=== PATIENT | female | born 1960 | race African-American/Black ===

== ENCOUNTER 2017-05-13 16:01 | Inpatient (IN) ==
[2017-05-13] MEDS ORDERED: DOCUSATE SODIUM 100 MG CAPSULE PO PRN (20:45)
[2017-05-13] MEDS ORDERED: MORPHINE 2 MG/1 ML SYRINGE IV PRN (20:47)
[2017-05-13] MEDS ORDERED: HEPARIN 5,000 UNIT/1 ML VIAL SUBCUT SCH (21:00)
[2017-05-13] MEDS ORDERED: SODIUM BICARB INJ 100 MEQ in SODIUM CHLORIDE 0.9% 1,000 ML IV SCH (21:00)
[2017-05-13 21:13] LABS: ABG Base Excess -21.6 MMOL/L (-2.5-2.5); ABG HCO3 9.1 MMOL/L (20-26); ABG Oxygen Saturation 95.2 % (95-100); ABG PCO2 21.8 MM HG (35-48); ABG TCO2 6.6 MMOL/L (23-27); Allen Test Positive; Pt O2 Delivery Device Room Air
[2017-05-13 21:18] LABS: ABG PH 7.116 (7.35-7.45)
[2017-05-13] MEDS: MORPHINE 2 MG/1 ML SYRINGE IV PRN (21:37)
[2017-05-13] MEDS: PANTOPRAZOLE 40 MG VIAL IV SCH (21:39)
[2017-05-13 21:54] LABS: Basophils % 0.1 % (0.0-0.8); Hemoglobin 11.3 GM/DL (12.0-16.0); Immature Granulocytes % 0.8 %; Immature Granulocytes Absolute 0.08 #; Lymphocytes # 0.7 10*3/uL (1.4-4.0); Lymphocytes % 6.2 % (21.3-54.2); Mean Corpuscular HGB Conc 30.5 GM/DL (32-36); Mean Corpuscular Hemoglobin 26 PG (27-34); Mean Corpuscular Volume 86.4 FL (87-102); Mean Platelet Volume 12.2 FL (9.6-12.0); Monocytes # 0.8 10*3/uL (0.11-0.8); Monocytes % 7.3 % (1.7-12.7); NRBC # 0.02 10*3/uL; Neutrophils # 9.1 10*3/uL (1.4-7.4); Neutrophils % 85.6 % (38.7-73.9); Platelet Count 221 T/CUMM (130-400); Red Blood Count 4.28 MC/CUMM (3.8-5.5); Red Cell Distribution Width 16.1 % (9.3-17.3); White Blood Count 10.6 T/CUMM (4-12)
[2017-05-13 22:11] LABS: Apearance,Urine CLOUDY (Clear); Bacteria,Urine Few /HPF (Few); Bilirubin,Urine Negative (Negative); Blood, Urine Small mg/dL (Negative); Glucose,Urine (UA) 50 mg/dL (Negative); Ketones,Urine 5 mg/dL (Negative); Mucus,Urine Occasional /LPF (Occasional); Nitrite,Urine Negative (Negative); Protein,Urine 100 MG/DL; RBC,Urine 19 /HPF (0-4); Squamous Epithelial Cell,Urine Occasional /HPF (0-10); Urine Color Yellow (Yellow); Urine Specific Gravity 1.009 (1.001-1.035); Urine Urobilinogen < 2.0 EU/DL (0.2-1.0); WBC,Urine 240 /HPF (0-6)
[2017-05-13 22:34] LABS: Alanine Aminotransferase < 9 U/L (13-56); Albumin 2.5 G/DL (3.4-5.0); Alkaline Phosphatase 85 U/L (45-117); Aspartate Amino Transferase 8 U/L (0-37); Bilirubin,Total < 0.39 MG/DL (0.2-1.0); Blood Urea Nitrogen 40 MG/DL (7-18); Glucose 68 MG/DL (74-106); Osmolality,Calculated 271.5 MOS/KG (273-304); Potassium 5.8 MMOL/L (3.5-5.1); Sodium 132 MMOL/L (136-145); Total Protein 5.8 G/DL (6.4-8.3)
[2017-05-13 22:35] LABS: Calcium 5.3 MG/DL (8.5-10.1)
[2017-05-13] MEDS: SODIUM BICARB INJ 150 MEQ in STERILE WATER INJ 850 ML IV SCH (22:41)
[2017-05-13] MEDS ORDERED: CALCIUM GLUCONATE 2,000 MG in SODIUM CHLORIDE 0.9% 100 ML IV ONE (23:00)
[2017-05-14] MEDS ORDERED: SODIUM POLYSTYRENE SULFATE 15 GM/60 ML BOTTLE PO SCH (00:30)
[2017-05-14] MEDS: MORPHINE 2 MG/1 ML SYRINGE IV PRN ×5 (02:37→20:19)
[2017-05-14 05:22] LABS: Hematocrit 33.4 VOL% (35.7-47.0); Hemoglobin 10.4 GM/DL (12.0-16.0); Immature Granulocytes % 0.4 %; Immature Granulocytes Absolute 0.03 #; Lymphocytes # 0.8 10*3/uL (1.4-4.0); Lymphocytes % 12.2 % (21.3-54.2); Mean Corpuscular HGB Conc 31.1 GM/DL (32-36); Mean Corpuscular Hemoglobin 26 PG (27-34); Mean Corpuscular Volume 82.5 FL (87-102); Mean Platelet Volume 12.5 FL (9.6-12.0); Monocytes # 0.5 10*3/uL (0.11-0.8); Monocytes % 7.4 % (1.7-12.7); NRBC # 0.02 10*3/uL; Neutrophils # 5.5 10*3/uL (1.4-7.4); Platelet Count 196 T/CUMM (130-400); Red Blood Count 4.05 MC/CUMM (3.8-5.5); Red Cell Distribution Width 15.9 % (9.3-17.3); White Blood Count 6.9 T/CUMM (4-12)
[2017-05-14] MEDS: SODIUM BICARB INJ 150 MEQ in STERILE WATER INJ 850 ML IV SCH ×3 (05:22→19:54)
[2017-05-14 06:02] LABS: Magnesium 1.8 MG/DL (1.8-2.4); Osmolality,Calculated 277.1 MOS/KG (273-304); Potassium 4.4 MMOL/L (3.5-5.1)
[2017-05-14 06:09] LABS: Alanine Aminotransferase 10 U/L (13-56); Albumin 2.3 G/DL (3.4-5.0); Alkaline Phosphatase 84 U/L (45-117); Aspartate Amino Transferase 7 U/L (0-37); Bilirubin,Total < 0.39 MG/DL (0.2-1.0); Blood Urea Nitrogen 37 MG/DL (7-18); Calcium 5.6 MG/DL (8.5-10.1); Cholesterol 169 MG/DL (50-200); Glucose 77 MG/DL (74-106); HDL Cholesterol 26 MG/DL (40-60); Osmolality,Calculated 275.2 MOS/KG (273-304); Potassium 4.4 MMOL/L (3.5-5.1); Sodium 134 MMOL/L (136-145); Thyroid Stimulating Hormone < 0.005 uIU/ml (0.358-3.74); Total Protein 5.6 G/DL (6.4-8.3); Triglycerides 334 MG/DL (2-150); VLDL CHOLESTEROL 66.8 MG/DL
[2017-05-14 06:15] LABS: Calcium 5.6 MG/DL (8.5-10.1)
[2017-05-14] MEDS: PANTOPRAZOLE 40 MG VIAL IV SCH (09:29)
[2017-05-14] MEDS: CALCIUM (CARBONATE) 500 MG TABLET PO SCH ×3 (09:31→20:19)
[2017-05-14] MEDS: PANTOPRAZOLE 40 MG TABLET PO SCH ×2 (13:24→20:19)
[2017-05-14] MEDS: cefTRIAXone 1,000 MG in SYRINGE 1 EACH IV SCH (13:57)
[2017-05-14] MEDS: SUCRALFATE 1 GM TABLET PO SCH ×2 (20:02→20:19)
[2017-05-15] MEDS: MORPHINE 2 MG/1 ML SYRINGE IV PRN ×6 (00:16→21:15)
[2017-05-15] MEDS: SODIUM BICARB INJ 150 MEQ in STERILE WATER INJ 850 ML IV SCH ×3 (05:06→18:18)
[2017-05-15 07:13] LABS: Basophils % 0.2 % (0.0-0.8); Eosinophils # 0.1 10*3/uL (0.0-0.87); Eosinophils % 1.5 % (0.00-10.9); Hemoglobin 10.2 GM/DL (12.0-16.0); Immature Granulocytes % 0.4 %; Immature Granulocytes Absolute 0.02 #; Lymphocytes # 1.5 10*3/uL (1.4-4.0); Mean Corpuscular Hemoglobin 26 PG (27-34); Mean Corpuscular Volume 77.5 FL (87-102); Mean Platelet Volume 12.3 FL (9.6-12.0); Monocytes # 0.8 10*3/uL (0.11-0.8); Monocytes % 13.8 % (1.7-12.7); Neutrophils # 3.1 10*3/uL (1.4-7.4); Neutrophils % 57.1 % (38.7-73.9); Platelet Count 192 T/CUMM (130-400); Red Blood Count 3.87 MC/CUMM (3.8-5.5); Red Cell Distribution Width 15.3 % (9.3-17.3); White Blood Count 5.5 T/CUMM (4-12)
[2017-05-15 08:08] LABS: Osmolality,Calculated 278.7 MOS/KG (273-304); Potassium 2.9 MMOL/L (3.5-5.1)
[2017-05-15] MEDS: PANTOPRAZOLE 40 MG TABLET PO SCH ×2 (08:24→21:15)
[2017-05-15] MEDS: CALCIUM (CARBONATE) 500 MG TABLET PO SCH ×3 (08:24→21:15)
[2017-05-15] MEDS: LEVOTHYROXINE 125 MCG TABLET PO SCH (08:24)
[2017-05-15] MEDS: SUCRALFATE 1 GM TABLET PO SCH ×4 (08:24→21:15)
[2017-05-15] MEDS ORDERED: PANTOPRAZOLE 40 MG TABLET PO SCH (09:00)
[2017-05-15] MEDS: cefTRIAXone 1,000 MG in SYRINGE 1 EACH IV SCH (13:06)
[2017-05-15] MEDS: POTASSIUM CHLORIDE 20 MEQ TABLET PO SCH ×4 (13:07→22:38)
[2017-05-15] MEDS: ALPRAZolam 0.5 MG TABLET PO SCH ×2 (18:29→18:38)
[2017-05-15] MEDS: SODIUM CHLORIDE 0.45% 1,000 ML IV SCH (18:34)
[2017-05-15] MEDS ORDERED: ALPRAZolam 0.5 MG TABLET PO ONE (22:17)
[2017-05-16] MEDS: SODIUM CHLORIDE 0.45% 1,000 ML IV SCH ×3 (02:14→20:11)
[2017-05-16 07:18] LABS: Osmolality,Calculated 274.7 MOS/KG (273-304); Potassium 3.9 MMOL/L (3.5-5.1)
[2017-05-16 07:30] LABS: Calcium 5.1 MG/DL (8.5-10.1)
[2017-05-16] MEDS: MORPHINE 2 MG/1 ML SYRINGE IV PRN ×2 (08:57→12:46)
[2017-05-16] MEDS: CALCIUM (CARBONATE) 500 MG TABLET PO SCH ×3 (08:58→20:10)
[2017-05-16] MEDS: LEVOTHYROXINE 125 MCG TABLET PO SCH (08:58)
[2017-05-16] MEDS: ALPRAZolam 0.5 MG TABLET PO SCH ×2 (08:58→18:22)
[2017-05-16] MEDS: SUCRALFATE 1 GM TABLET PO SCH ×4 (08:58→20:10)
[2017-05-16] MEDS: PANTOPRAZOLE 40 MG TABLET PO SCH ×2 (08:58→20:10)
[2017-05-16] MEDS: cefTRIAXone 1,000 MG in SYRINGE 1 EACH IV SCH (10:40)
[2017-05-16] MEDS: CALCIUM GLUCONATE 2,000 MG in SODIUM CHLORIDE 0.9% 100 ML IV SCH ×2 (13:41→16:59)
[2017-05-16] MEDS: ONDANSETRON 4 MG/2 ML VIAL IV PRN (18:30)
[2017-05-16] MEDS: traZODone 50 MG TABLET PO PRN (20:10)
[2017-05-17] MEDS: SODIUM CHLORIDE 0.45% 1,000 ML IV SCH (06:22)
[2017-05-17 07:22] LABS: Calcium 5.9 MG/DL (8.5-10.1); Magnesium 1.3 MG/DL (1.8-2.4); Osmolality,Calculated 284.1 MOS/KG (273-304); Potassium 3.2 MMOL/L (3.5-5.1)
[2017-05-17] MEDS ORDERED: CALCIUM GLUCONATE 2,000 MG in SODIUM CHLORIDE 0.9% 100 ML IV ONE (09:00)
[2017-05-17] MEDS: CALCIUM (CARBONATE) 500 MG TABLET PO SCH ×3 (10:06→22:29)
[2017-05-17] MEDS: ALPRAZolam 0.5 MG TABLET PO SCH ×2 (10:06→18:21)
[2017-05-17] MEDS: SULFAMETHOX/TRIMETHOPRIM 800-160 MG TABLET PO SCH ×2 (10:06→22:29)
[2017-05-17] MEDS: LEVOTHYROXINE 125 MCG TABLET PO SCH (10:06)
[2017-05-17] MEDS: SUCRALFATE 1 GM TABLET PO SCH ×4 (10:06→22:29)
[2017-05-17] MEDS: PANTOPRAZOLE 40 MG TABLET PO SCH ×2 (10:07→22:29)
[2017-05-17] MEDS: MAGNESIUM SULFATE 1 GM/2 ML VIAL IM SCH ×2 (12:23→18:22)
[2017-05-17] MEDS: ONDANSETRON 4 MG/2 ML VIAL IV PRN (13:42)
[2017-05-17] MEDS: traZODone 50 MG TABLET PO PRN (22:28)
[2017-05-18] MEDS: ONDANSETRON 4 MG/2 ML VIAL IV PRN (06:17)
[2017-05-18 07:03] LABS: Calcium 6.3 MG/DL (8.5-10.1); Magnesium 1.9 MG/DL (1.8-2.4); Osmolality,Calculated 278.4 MOS/KG (273-304); Potassium 3.2 MMOL/L (3.5-5.1)
[2017-05-18] MEDS: SULFAMETHOX/TRIMETHOPRIM 800-160 MG TABLET PO SCH (08:31)
[2017-05-18] MEDS: CALCIUM (CARBONATE) 500 MG TABLET PO SCH (08:31)
[2017-05-18] MEDS: PANTOPRAZOLE 40 MG TABLET PO SCH (08:31)
[2017-05-18] MEDS: SUCRALFATE 1 GM TABLET PO SCH ×2 (08:31→13:00)
[2017-05-18] MEDS: ALPRAZolam 0.5 MG TABLET PO SCH (08:31)
[2017-05-18] MEDS: LEVOTHYROXINE 125 MCG TABLET PO SCH (08:31)
[2017-05-18 12:57] VITALS: BP 128/64
== END 2017-05-18 13:20 | disposition home or self-care (01) | DRG 918 ==
LOC: SUATTDRO 20:31 → N.CC 20:31 → N.5E 05-15 01:44
PROVIDERS: ADMIT Internal Medicine; ATTEND Internal Medicine Cardiovascular Disease

== ENCOUNTER 2018-09-18 11:37 | Inpatient (IN) ==
[2018-09-18] MEDS ORDERED: SODIUM CHLORIDE 0.9% 1,000 ML IV STA (13:05)
[2018-09-18 13:10] LABS: Apearance,Urine CLEAR (Clear); Bilirubin,Urine Negative (Negative); Blood, Urine Negative (Negative); Glucose,Urine (UA) Negative (Negative); Hyaline Casts,Urine 1 /LPF (0-3); Ketones,Urine Negative (Negative); Mucus,Urine Many /LPF (Occasional); Nitrite,Urine Negative (Negative); Protein,Urine 100 MG/DL; RBC,Urine <1 /HPF (0-4); Squamous Epithelial Cell,Urine Occasional /HPF (0-10); Urine Color Yellow (Yellow); Urine Specific Gravity 1.021 (1.001-1.035); Urine Urobilinogen < 2.0 EU/DL (0.2-1.0); WBC,Urine 2 /HPF (0-6)
[2018-09-18 13:22] LABS: Basophils % 0.4 % (0.0-0.8); Eosinophils # 0.8 10*3/uL (0.0-0.87); Eosinophils % 7.9 % (0.00-10.9); Hematocrit 33.7 VOL% (35.7-47.0); Hemoglobin 10.2 GM/DL (12.0-16.0); Immature Granulocytes % 0.4 %; Immature Granulocytes Absolute 0.04 #; Lymphocytes % 19.8 % (21.3-54.2); Mean Corpuscular HGB Conc 30.3 GM/DL (32-36); Mean Corpuscular Volume 87.1 FL (87-102); Mean Platelet Volume 10.6 FL (9.6-12.0); Monocytes % 10.1 % (1.7-12.7); Neutrophils % 61.4 % (38.7-73.9); Platelet Count 275 T/CUMM (130-400); Red Blood Count 3.87 MC/CUMM (3.8-5.5); Red Cell Distribution Width 17.3 % (9.3-17.3); White Blood Count 10.2 T/CUMM (4-12)
[2018-09-18 13:33] LABS: Barbiturates Screen,Urine Negative (Negative); Benzodiazepines Screen,Urine Negative (Negative); Cannabinoid Screen,Urine Positive (Negative); Opiate Screen,Urine Positive (Negative); Phencyclidine Screen,Urine Negative (Negative)
[2018-09-18] MEDS ORDERED: ONDANSETRON 4 MG/2 ML VIAL IV STA (13:49)
[2018-09-18 13:50] LABS: Alanine Aminotransferase 9 U/L (13-56); Albumin 2.4 G/DL (3.4-5.0); Alkaline Phosphatase 101 U/L (45-117); Aspartate Amino Transferase 7 U/L (0-37); Bilirubin,Total < 0.39 MG/DL (0.2-1.0); Blood Urea Nitrogen 11 MG/DL (7-18); Calcium 8.4 MG/DL (8.5-10.1); Glucose 80 MG/DL (74-106); Osmolality,Calculated 280.1 MOS/KG (273-304); Total Protein 6.2 G/DL (6.4-8.3)
[2018-09-18] MEDS ORDERED: MORPHINE 4 MG/1 ML VIAL IV STA (14:19)
[2018-09-18] MEDS ORDERED: diphenhydrAMINE CAP 25 MG CAPSULE PO PRN (15:57)
[2018-09-18] MEDS ORDERED: ZALEPLON 5 MG CAPSULE PO PRN (15:57)
[2018-09-18] MEDS: HYDROmorphone 2 MG/1 ML VIAL IV PRN ×2 (17:38→20:16)
[2018-09-18] MEDS: NICOTINE 21 MG/24 HR PATCH TRANSDERM PRN (17:38)
[2018-09-18] MEDS: PANTOPRAZOLE 40 MG TABLET PO SCH (17:39)
[2018-09-18] MEDS: SUCRALFATE 1 GM TABLET PO SCH (20:15)
[2018-09-18] MEDS: ENOXAPARIN 40 MG/0.4 ML SYRINGE SUBCUT SCH (20:16)
[2018-09-18] MEDS: GABAPENTIN 300 MG CAPSULE PO SCH (20:16)
[2018-09-18] MEDS: ALPRAZolam 0.5 MG TABLET PO SCH (20:16)
[2018-09-18] MEDS: ONDANSETRON 4 MG/2 ML VIAL IV PRN (20:17)
[2018-09-19] MEDS: ONDANSETRON 4 MG/2 ML VIAL IV PRN ×2 (01:00→09:08)
[2018-09-19] MEDS: HYDROmorphone 2 MG/1 ML VIAL IV PRN ×3 (01:03→16:10)
[2018-09-19 05:18] LABS: Basophils % 0.4 % (0.0-0.8); Eosinophils # 0.9 10*3/uL (0.0-0.87); Hematocrit 28.5 VOL% (35.7-47.0); Hemoglobin 8.8 GM/DL (12.0-16.0); Immature Granulocytes % 0.2 %; Immature Granulocytes Absolute 0.02 #; Lymphocytes # 3.8 10*3/uL (1.4-4.0); Lymphocytes % 38.5 % (21.3-54.2); Mean Corpuscular HGB Conc 30.9 GM/DL (32-36); Mean Corpuscular Volume 87.4 FL (87-102); Mean Platelet Volume 11.8 FL (9.6-12.0); Monocytes % 8.3 % (1.7-12.7); Neutrophils % 43.6 % (38.7-73.9); Platelet Count 148 T/CUMM (130-400); Red Blood Count 3.26 MC/CUMM (3.8-5.5); Red Cell Distribution Width 17.3 % (9.3-17.3); White Blood Count 9.9 T/CUMM (4-12)
[2018-09-19 05:24] LABS: Alanine Aminotransferase < 9 U/L (13-56); Albumin 1.9 G/DL (3.4-5.0); Alkaline Phosphatase 85 U/L (45-117); Aspartate Amino Transferase 8 U/L (0-37); Blood Urea Nitrogen 12 MG/DL (7-18); Calcium 7.6 MG/DL (8.5-10.1); Glucose 98 MG/DL (74-106); Total Protein 5.2 G/DL (6.4-8.3)
[2018-09-19] MEDS: LEVOTHYROXINE 200 MCG TABLET PO SCH (06:13)
[2018-09-19] MEDS: LEVOTHYROXINE 25 MCG TABLET PO SCH (06:13)
[2018-09-19 06:33] LABS: Eosinophils 9 % (0-10); Lymphocytes 30 % (20-55); Segmented Neutrophils 52 % (50-85); Total Cells Counted 100
[2018-09-19 06:34] LABS: Hypochromasia 1+
[2018-09-19] MEDS: PANTOPRAZOLE 40 MG TABLET PO SCH (09:08)
[2018-09-19] MEDS: GABAPENTIN 300 MG CAPSULE PO SCH ×3 (09:08→20:53)
[2018-09-19] MEDS: SUCRALFATE 1 GM TABLET PO SCH ×3 (09:08→20:53)
[2018-09-19] MEDS: SODIUM CHLORIDE 0.9% 1,000 ML IV SCH ×2 (09:09→20:56)
[2018-09-19] MEDS: ALPRAZolam 0.5 MG TABLET PO SCH (20:53)
[2018-09-19] MEDS: ENOXAPARIN 40 MG/0.4 ML SYRINGE SUBCUT SCH (20:53)
[2018-09-20] MEDS: ONDANSETRON 4 MG/2 ML VIAL IV PRN ×3 (04:31→21:28)
[2018-09-20] MEDS: HYDROmorphone 2 MG/1 ML VIAL IV PRN ×3 (05:05→21:30)
[2018-09-20] MEDS: SODIUM CHLORIDE 0.9% 1,000 ML IV SCH ×4 (05:07→21:00)
[2018-09-20] MEDS: LEVOTHYROXINE 25 MCG TABLET PO SCH (05:52)
[2018-09-20] MEDS: LEVOTHYROXINE 200 MCG TABLET PO SCH (05:52)
[2018-09-20 06:30] LABS: Basophils % 0.3 % (0.0-0.8); Eosinophils # 0.6 10*3/uL (0.0-0.87); Eosinophils % 6.5 % (0.00-10.9); Hematocrit 29.3 VOL% (35.7-47.0); Hemoglobin 8.7 GM/DL (12.0-16.0); Immature Granulocytes % 0.4 %; Immature Granulocytes Absolute 0.04 #; Lymphocytes # 2.6 10*3/uL (1.4-4.0); Lymphocytes % 29.6 % (21.3-54.2); Mean Corpuscular HGB Conc 29.7 GM/DL (32-36); Mean Corpuscular Volume 88.3 FL (87-102); Mean Platelet Volume 10.9 FL (9.6-12.0); Monocytes % 10.3 % (1.7-12.7); Neutrophils % 52.9 % (38.7-73.9); Platelet Count 225 T/CUMM (130-400); Red Blood Count 3.32 MC/CUMM (3.8-5.5); Red Cell Distribution Width 17.5 % (9.3-17.3); White Blood Count 8.9 T/CUMM (4-12)
[2018-09-20 06:59] LABS: Calcium 7.5 MG/DL (8.5-10.1)
[2018-09-20] MEDS: GABAPENTIN 300 MG CAPSULE PO SCH ×3 (08:34→21:19)
[2018-09-20] MEDS: PANTOPRAZOLE 40 MG TABLET PO SCH (08:34)
[2018-09-20] MEDS: SUCRALFATE 1 GM TABLET PO SCH ×3 (08:34→21:19)
[2018-09-20] MEDS: NICOTINE 21 MG/24 HR PATCH TRANSDERM PRN (08:35)
[2018-09-20] MEDS ORDERED: POLYETHYLENE GLYCOL POWDER 17 GM PACK PO PRN (13:39)
[2018-09-20] MEDS ORDERED: ALUMINUM/MAGNES/SIMETH MAX STR 30 ML UDCUP PO PRN (13:39)
[2018-09-20] MEDS: MAGNESIUM HYDROXIDE SUSP 30 ML UDCUP PO PRN (14:25)
[2018-09-20] MEDS: SIMETHICONE CHEW 125 MG TABLET PO PRN (17:19)
[2018-09-20] MEDS: ALPRAZolam 0.5 MG TABLET PO SCH (21:19)
[2018-09-20] MEDS: ENOXAPARIN 40 MG/0.4 ML SYRINGE SUBCUT SCH (21:20)
[2018-09-21] MEDS: LEVOTHYROXINE 200 MCG TABLET PO SCH (05:33)
[2018-09-21] MEDS: LEVOTHYROXINE 25 MCG TABLET PO SCH (05:33)
[2018-09-21 05:51] LABS: Basophils % 0.4 % (0.0-0.8); Eosinophils # 0.6 10*3/uL (0.0-0.87); Eosinophils % 7.6 % (0.00-10.9); Hematocrit 32.1 VOL% (35.7-47.0); Hemoglobin 9.4 GM/DL (12.0-16.0); Immature Granulocytes % 0.4 %; Immature Granulocytes Absolute 0.03 #; Lymphocytes # 3.3 10*3/uL (1.4-4.0); Lymphocytes % 43.3 % (21.3-54.2); Mean Corpuscular HGB Conc 29.3 GM/DL (32-36); Mean Corpuscular Volume 92.2 FL (87-102); Mean Platelet Volume 11.7 FL (9.6-12.0); Monocytes % 8.8 % (1.7-12.7); Neutrophils % 39.5 % (38.7-73.9); Red Blood Count 3.48 MC/CUMM (3.8-5.5); Red Cell Distribution Width 17.2 % (9.3-17.3); White Blood Count 7.6 T/CUMM (4-12)
[2018-09-21 05:58] LABS: Platelet Count 102 T/CUMM (130-400)
[2018-09-21] MEDS: ONDANSETRON 4 MG/2 ML VIAL IV PRN (06:34)
[2018-09-21] MEDS: SODIUM CHLORIDE 0.9% 1,000 ML IV SCH (06:37)
[2018-09-21 06:42] LABS: Calcium 7.7 MG/DL (8.5-10.1); Osmolality,Calculated 280.1 MOS/KG (273-304)
[2018-09-21] MEDS: NICOTINE 21 MG/24 HR PATCH TRANSDERM PRN (08:32)
[2018-09-21] MEDS: PANTOPRAZOLE 40 MG TABLET PO SCH (08:33)
[2018-09-21] MEDS: GABAPENTIN 300 MG CAPSULE PO SCH (08:33)
[2018-09-21] MEDS: SIMETHICONE CHEW 125 MG TABLET PO PRN (08:33)
[2018-09-21] MEDS: HYDROmorphone 2 MG/1 ML VIAL IV PRN (08:48)
[2018-09-21] MEDS: SUCRALFATE 1 GM TABLET PO SCH (08:48)
[2018-09-21] MEDS: MAGNESIUM HYDROXIDE SUSP 30 ML UDCUP PO PRN (08:49)
[2018-09-21 11:56] VITALS: BP 99/54
== END 2018-09-21 14:29 | disposition home or self-care (01) | DRG 439 ==
LOC: N.ED 11:37 → N.EDINP 16:22 → N.2E 17:23
PROVIDERS: ADMIT Hospitalist; ATTEND Hospitalist

== ENCOUNTER 2020-11-03 13:26 | Inpatient (IN) ==
[2020-11-03] MEDS ORDERED: SODIUM CHLORIDE 0.9% 1,000 ML IV STA (15:45)
[2020-11-03] MEDS ORDERED: ONDANSETRON 4 MG/2 ML VIAL IV STA (15:45)
[2020-11-03] MEDS ORDERED: MORPHINE 4 MG/1 ML VIAL IV STA (15:45)
[2020-11-03 20:02] LABS: Basophils % 0.1 % (0.0-0.8); Hematocrit 35.7 VOL% (35.7-47.0); Hemoglobin 11.1 GM/DL (12.0-16.0); Immature Granulocytes % 0.3 %; Immature Granulocytes Absolute 0.03 #; Lymphocytes # 0.8 10*3/uL (1.4-4.0); Lymphocytes % 7.6 % (21.3-54.2); Mean Corpuscular HGB Conc 31.1 GM/DL (32-36); Mean Corpuscular Volume 83.2 FL (87-102); Mean Platelet Volume 10.5 FL (9.6-12.0); Monocytes % 7.6 % (1.7-12.7); Neutrophils % 84.4 % (38.7-73.9); Platelet Count 226 T/CUMM (130-400); Red Blood Count 4.29 MC/CUMM (3.8-5.5); Red Cell Distribution Width 22.9 % (9.3-17.3); White Blood Count 10.4 T/CUMM (4-12)
[2020-11-03 20:23] LABS: Bilirubin,Urine Negative (Negative); Blood, Urine Negative (Negative); Glucose,Urine (UA) Negative (Negative); Hyaline Casts,Urine 4 /LPF (0-3); Ketones,Urine 5 mg/dL (Negative); Mucus,Urine Occasional /LPF (Occasional); Nitrite,Urine Negative (Negative); Protein,Urine 100 MG/DL; RBC,Urine 2 /HPF (0-4); Squamous Epithelial Cell,Urine Occasional /HPF (0-10); Urine Appearance CLEAR (Clear); Urine Color Yellow (Yellow); Urine Specific Gravity 1.018 (1.001-1.035); Urine Urobilinogen < 2.0 EU/DL (0.2-1.0)
[2020-11-03 20:27] LABS: Alanine Aminotransferase 12 U/L (13-56); Albumin 2.5 G/DL (3.4-5.0); Alkaline Phosphatase 56 U/L (45-117); Aspartate Amino Transferase 10 U/L (0-37); Bilirubin,Total < 0.39 MG/DL (0.2-1.0); Blood Urea Nitrogen 8 MG/DL (7-18); Calcium 8.6 MG/DL (8.5-10.1); Carbon Dioxide 24 MMOL/L (21-32); Estimated Glom Filtration Rate 118 ML/MIN; Glucose 108 MG/DL (74-106); Osmolality,Calculated 277.4 MOS/KG (273-304); Potassium 3.5 MMOL/L (3.5-5.1); Sodium 140 MMOL/L (136-145); Total Protein 5.9 G/DL (6.4-8.2)
[2020-11-03] MEDS ORDERED: HYDROmorphone 2 MG/1 ML VIAL IV STA (21:00)
[2020-11-03] MEDS ORDERED: PROMETHAZINE 25 MG/1 ML VIAL IM PRN (23:14)
[2020-11-03] MEDS ORDERED: ALBUTEROL/IPRATROPIUM 3 ML NEB RESP TX PRN (23:14)
[2020-11-03] MEDS ORDERED: DEXTROSE 50% 25 GM/50 ML VIAL IV PRN (23:14)
[2020-11-03] MEDS ORDERED: GLUCAGON 1 MG VIAL IM PRN (23:14)
[2020-11-03] MEDS ORDERED: hydrALAZINE 20 MG/1 ML VIAL IV PRN (23:14)
[2020-11-04] MEDS: ENOXAPARIN 40 MG/0.4 ML SYRINGE SUBCUT SCH ×2 (00:28→23:00)
[2020-11-04] MEDS: LACTATED RINGERS 1,000 ML IV SCH ×3 (00:29→16:33)
[2020-11-04] MEDS: ONDANSETRON 4 MG/2 ML VIAL IV PRN ×3 (01:48→21:12)
[2020-11-04] MEDS: HYDROmorphone 2 MG/1 ML VIAL IV PRN ×5 (01:49→21:13)
[2020-11-04] MEDS: PANTOPRAZOLE 40 MG VIAL IV SCH ×2 (08:08→21:06)
[2020-11-04 08:10] LABS: Basophils % 0.1 % (0.0-0.8); Eosinophils % 0.2 % (0.00-10.9); Hematocrit 35.4 VOL% (35.7-47.0); Hemoglobin 11.1 GM/DL (12.0-16.0); Immature Granulocytes % 0.5 %; Immature Granulocytes Absolute 0.07 #; Lymphocytes # 0.7 10*3/uL (1.4-4.0); Lymphocytes % 4.6 % (21.3-54.2); Mean Corpuscular HGB Conc 31.4 GM/DL (32-36); Mean Corpuscular Volume 83.1 FL (87-102); Monocytes % 8.1 % (1.7-12.7); Neutrophils % 86.5 % (38.7-73.9); Platelet Count 227 T/CUMM (130-400); Red Blood Count 4.26 MC/CUMM (3.8-5.5); Red Cell Distribution Width 22.8 % (9.3-17.3)
[2020-11-04] MEDS: NICOTINE 21 MG/24 HR PATCH TRANSDERM SCH (08:11)
[2020-11-04 08:26] LABS: Alanine Aminotransferase 10 U/L (13-56); Albumin 2.3 G/DL (3.4-5.0); Alkaline Phosphatase 55 U/L (45-117); Aspartate Amino Transferase 14 U/L (0-37); Bilirubin,Total < 0.39 MG/DL (0.2-1.0); Blood Urea Nitrogen 8 MG/DL (7-18); Calcium 8.3 MG/DL (8.5-10.1); Carbon Dioxide 24 MMOL/L (21-32); Estimated Glom Filtration Rate 119 ML/MIN; Glucose 86 MG/DL (74-106); Osmolality,Calculated 275.4 MOS/KG (273-304); Sodium 140 MMOL/L (136-145); Total Protein 5.8 G/DL (6.4-8.2)
[2020-11-04 08:29] LABS: Hypochromasia 1+; Lymphocytes 3 % (20-55); Microcytosis 1+; Platelet Estimate Adequate; Segmented Neutrophils 94 % (50-85); Total Cells Counted 100
[2020-11-04] MEDS ORDERED: PANTOPRAZOLE 40 MG VIAL IV SCH (09:00)
[2020-11-05] MEDS: LACTATED RINGERS 1,000 ML IV SCH ×4 (00:36→18:23)
[2020-11-05 05:19] LABS: Basophils % 0.1 % (0.0-0.8); Eosinophils # 0.2 10*3/uL (0.0-0.87); Eosinophils % 0.8 % (0.00-10.9); Hematocrit 32.1 VOL% (35.7-47.0); Hemoglobin 9.8 GM/DL (12.0-16.0); Immature Granulocytes % 0.7 %; Immature Granulocytes Absolute 0.14 #; Lymphocytes # 1.4 10*3/uL (1.4-4.0); Lymphocytes % 6.9 % (21.3-54.2); Mean Corpuscular HGB Conc 30.5 GM/DL (32-36); Mean Corpuscular Volume 85.1 FL (87-102); Mean Platelet Volume 12.1 FL (9.6-12.0); Monocytes % 10.4 % (1.7-12.7); Neutrophils % 81.1 % (38.7-73.9); Platelet Count 195 T/CUMM (130-400); Red Blood Count 3.77 MC/CUMM (3.8-5.5); Red Cell Distribution Width 23.2 % (9.3-17.3); White Blood Count 20.8 T/CUMM (4-12)
[2020-11-05 05:43] LABS: Lymphocytes 5 % (20-55); Platelet Estimate Adequate; Segmented Neutrophils 92 % (50-85); Total Cells Counted 100
[2020-11-05 05:44] LABS: Hypochromasia Slight; Microcytosis Slight
[2020-11-05 05:52] LABS: Albumin 1.9 G/DL (3.4-5.0); Bilirubin,Total 0.4 MG/DL (0.2-1.0); Calcium 8.4 MG/DL (8.5-10.1); Osmolality,Calculated 276.4 MOS/KG (273-304); Potassium 3.7 MMOL/L (3.5-5.1); Total Protein 5.2 G/DL (6.4-8.2)
[2020-11-05] MEDS: HYDROmorphone 2 MG/1 ML VIAL IV PRN ×4 (07:33→22:28)
[2020-11-05] MEDS: ONDANSETRON 4 MG/2 ML VIAL IV PRN ×4 (07:38→23:19)
[2020-11-05] MEDS ORDERED: PNEUMOCOCCAL VACCINE (23 VALENT) 0.5 ML VIAL IM ONE (09:00)
[2020-11-05 09:10] LABS: Basophils % 0.2 % (0.0-0.8); Eosinophils # 0.3 10*3/uL (0.0-0.87); Eosinophils % 1.5 % (0.00-10.9); Hematocrit 31.5 VOL% (35.7-47.0); Hemoglobin 9.8 GM/DL (12.0-16.0); Immature Granulocytes % 0.6 %; Lymphocytes # 1.2 10*3/uL (1.4-4.0); Lymphocytes % 7.4 % (21.3-54.2); Mean Corpuscular HGB Conc 31.1 GM/DL (32-36); Mean Corpuscular Volume 82.9 FL (87-102); Mean Platelet Volume 11.2 FL (9.6-12.0); Monocytes % 8.5 % (1.7-12.7); Neutrophils % 81.8 % (38.7-73.9); Platelet Count 185 T/CUMM (130-400); Red Cell Distribution Width 22.5 % (9.3-17.3); White Blood Count 16.4 T/CUMM (4-12)
[2020-11-05] MEDS: PANTOPRAZOLE 40 MG VIAL IV SCH ×2 (09:50→20:17)
[2020-11-05] MEDS: NICOTINE 21 MG/24 HR PATCH TRANSDERM SCH (09:51)
[2020-11-05] MEDS: FERROUS SULFATE 325 MG TABLET PO SCH ×2 (14:02→20:18)
[2020-11-05] MEDS: ENOXAPARIN 40 MG/0.4 ML SYRINGE SUBCUT SCH (23:19)
[2020-11-06] MEDS: LACTATED RINGERS 1,000 ML IV SCH ×3 (02:33→19:50)
[2020-11-06] MEDS: LORazepam 2 MG/1 ML VIAL IV PRN (03:21)
[2020-11-06 08:09] LABS: Basophils % 0.2 % (0.0-0.8); Eosinophils # 0.5 10*3/uL (0.0-0.87); Eosinophils % 4.8 % (0.00-10.9); Hematocrit 27.4 VOL% (35.7-47.0); Immature Granulocytes % 0.4 %; Immature Granulocytes Absolute 0.04 #; Lymphocytes % 19.7 % (21.3-54.2); Mean Corpuscular HGB Conc 32.8 GM/DL (32-36); Mean Corpuscular Volume 81.3 FL (87-102); Mean Platelet Volume 11.2 FL (9.6-12.0); Monocytes % 10.2 % (1.7-12.7); Neutrophils % 64.7 % (38.7-73.9); Platelet Count 170 T/CUMM (130-400); Red Blood Count 3.37 MC/CUMM (3.8-5.5); Red Cell Distribution Width 22.2 % (9.3-17.3); White Blood Count 10.1 T/CUMM (4-12)
[2020-11-06 09:05] LABS: Hypochromasia 1+; Target Cells Few
[2020-11-06 09:06] LABS: Platelet Estimate Adequate
[2020-11-06] MEDS: NICOTINE 21 MG/24 HR PATCH TRANSDERM SCH (09:13)
[2020-11-06] MEDS: FERROUS SULFATE 325 MG TABLET PO SCH ×4 (09:13→20:12)
[2020-11-06] MEDS: HYDROmorphone 2 MG/1 ML VIAL IV PRN (09:14)
[2020-11-06] MEDS: ONDANSETRON 4 MG/2 ML VIAL IV PRN ×2 (09:17→12:56)
[2020-11-06] MEDS: PANTOPRAZOLE 40 MG VIAL IV SCH ×3 (09:20→20:12)
[2020-11-06] MEDS ORDERED: METHOCARBAMOL 750 MG TABLET PO PRN (11:05)
[2020-11-06] MEDS ORDERED: PROMETHAZINE 25 MG TABLET PO PRN (11:05)
[2020-11-06] MEDS ORDERED: ALBUTEROL 2.5 MG/3 ML NEB RESP TX PRN (11:13)
[2020-11-06] MEDS: SUCRALFATE 1 GM TABLET PO SCH ×4 (11:16→20:11)
[2020-11-06] MEDS: DOCUSATE SODIUM 100 MG CAPSULE PO PRN (13:00)
[2020-11-06] MEDS: ALPRAZolam 0.5 MG TABLET PO SCH (20:10)
[2020-11-06] MEDS: ENOXAPARIN 40 MG/0.4 ML SYRINGE SUBCUT SCH (22:45)
[2020-11-07] MEDS: LACTATED RINGERS 1,000 ML IV SCH ×2 (04:30→17:38)
[2020-11-07] MEDS: ONDANSETRON 4 MG/2 ML VIAL IV PRN ×3 (05:25→22:12)
[2020-11-07 06:28] LABS: Alanine Aminotransferase 10 U/L (13-56); Albumin 1.7 G/DL (3.4-5.0); Alkaline Phosphatase 56 U/L (45-117); Aspartate Amino Transferase 6 U/L (0-37); Bilirubin,Total < 0.39 MG/DL (0.2-1.0); Blood Urea Nitrogen 10 MG/DL (7-18); Calcium 7.8 MG/DL (8.5-10.1); Carbon Dioxide 24 MMOL/L (21-32); Estimated Glom Filtration Rate 119 ML/MIN; Glucose 80 MG/DL (74-106); Osmolality,Calculated 280.1 MOS/KG (273-304); Sodium 142 MMOL/L (136-145)
[2020-11-07] MEDS: NICOTINE 21 MG/24 HR PATCH TRANSDERM SCH (08:43)
[2020-11-07] MEDS: SUCRALFATE 1 GM TABLET PO SCH ×4 (08:44→20:33)
[2020-11-07] MEDS: PANTOPRAZOLE 40 MG VIAL IV SCH (08:44)
[2020-11-07] MEDS: FERROUS SULFATE 325 MG TABLET PO SCH ×3 (08:44→20:33)
[2020-11-07] MEDS: DOCUSATE SODIUM 100 MG CAPSULE PO PRN (08:44)
[2020-11-07] MEDS: POTASSIUM CHLORIDE 20 MEQ TABLET PO PRN ×3 (08:44→17:58)
[2020-11-07] MEDS ORDERED: MAGNESIUM CITRATE 300 ML BOTTLE PO ONE (11:26)
[2020-11-07] MEDS ORDERED: MAGNESIUM SULF RIDER 4 GM/100 ML PREMIX IV PRN (12:55)
[2020-11-07] MEDS ORDERED: MAGNESIUM SULF RIDER 2 GM/50 ML PREMIX IV PRN (12:55)
[2020-11-07] MEDS ORDERED: PALIPERIDONE PALMITATE IM SCH (16:30)
[2020-11-07] MEDS: POTASSIUM CHLORIDE INJ 30 MEQ in LACTATED RINGERS 1,000 ML IV SCH (17:20)
[2020-11-07] MEDS: ENOXAPARIN 40 MG/0.4 ML SYRINGE SUBCUT SCH ×2 (20:33→23:30)
[2020-11-07] MEDS: DOCUSATE SODIUM 100 MG CAPSULE PO SCH (20:33)
[2020-11-07] MEDS: PANTOPRAZOLE 40 MG TABLET PO SCH (20:33)
[2020-11-07] MEDS: ALPRAZolam 0.5 MG TABLET PO SCH (20:33)
[2020-11-07] MEDS: LORazepam 2 MG/1 ML VIAL IV PRN (22:10)
[2020-11-08] MEDS: POTASSIUM CHLORIDE INJ 30 MEQ in LACTATED RINGERS 1,000 ML IV SCH (07:09)
[2020-11-08] MEDS: DOCUSATE SODIUM 100 MG CAPSULE PO SCH (08:07)
[2020-11-08] MEDS: SUCRALFATE 1 GM TABLET PO SCH ×2 (08:07→10:31)
[2020-11-08] MEDS: FERROUS SULFATE 325 MG TABLET PO SCH (08:07)
[2020-11-08] MEDS: PANTOPRAZOLE 40 MG TABLET PO SCH (08:07)
[2020-11-08] MEDS: NICOTINE 21 MG/24 HR PATCH TRANSDERM SCH (08:08)
[2020-11-08] MEDS: ONDANSETRON 4 MG/2 ML VIAL IV PRN (08:14)
[2020-11-08] MEDS ORDERED: POLYETHYLENE GLYCOL POWDER 17 GM PACK PO SCH (09:00)
[2020-11-08 12:40] VITALS: BP 110/60
== END 2020-11-08 14:06 | disposition home or self-care (01) | DRG 440 ==
LOC: N.ED 13:26 → SUATTDRO 21:40 → N.EDINP 21:40 → N.5E 23:00
PROVIDERS: ADMIT Internal Medicine; ATTEND Internal Medicine

== ENCOUNTER 2021-02-03 16:51 | Inpatient (IN) ==
[2021-02-03] MEDS ORDERED: SODIUM CHLORIDE 0.9% 1,000 ML IV STA ×2 (17:41→22:28)
[2021-02-03 18:17] LABS: Basophils % 0.2 % (0.0-0.8); Eosinophils # 0.1 10*3/uL (0.0-0.87); Eosinophils % 0.8 % (0.00-10.9); Hematocrit 30.4 VOL% (35.7-47.0); Hemoglobin 9.5 GM/DL (12.0-16.0); Immature Granulocytes % 2.3 %; Immature Granulocytes Absolute 0.31 #; Lymphocytes # 1.1 10*3/uL (1.4-4.0); Lymphocytes % 7.7 % (21.3-54.2); Mean Corpuscular HGB Conc 31.3 GM/DL (32-36); Mean Corpuscular Volume 87.9 FL (87-102); Mean Platelet Volume 10.9 FL (9.6-12.0); Monocytes % 7.3 % (1.7-12.7); NRBC # 0.11 10*3/uL; Neutrophils % 81.7 % (38.7-73.9); Platelet Count 510 T/CUMM (130-400); Red Blood Count 3.46 MC/CUMM (3.8-5.5); Red Cell Distribution Width 15.8 % (9.3-17.3); White Blood Count 13.7 T/CUMM (4-12)
[2021-02-03 18:41] LABS: Alanine Aminotransferase 40 U/L (13-56); Albumin 1.7 G/DL (3.4-5.0); Alkaline Phosphatase 133 U/L (45-117); Aspartate Amino Transferase 13 U/L (0-37); Bilirubin,Total < 0.39 MG/DL (0.20-1.00); Blood Urea Nitrogen 31 MG/DL (7-18); Calcium 8.6 MG/DL (8.5-10.1); Carbon Dioxide 10 MMOL/L (21-32); Estimated Glom Filtration Rate 23 ML/MIN; Glucose 103 MG/DL (74-106); Osmolality,Calculated 272.4 MOS/KG (273-304); Sodium 133 MMOL/L (136-145); Total Protein 6.2 G/DL (6.4-8.2)
[2021-02-03 19:18] LABS: Bilirubin,Urine Negative (Negative); Blood, Urine Negative (Negative); Glucose,Urine (UA) Negative (Negative); Hyaline Casts,Urine 3 /LPF (0-3); Ketones,Urine Negative (Negative); Mucus,Urine Occasional /LPF (Occasional); Nitrite,Urine Negative (Negative); Protein,Urine 100 MG/DL; RBC,Urine <1 /HPF (0-4); Squamous Epithelial Cell,Urine Occasional /HPF (0-10); Urine Appearance Slightly Hazy (Clear); Urine Color Yellow (Yellow); Urine Specific Gravity 1.016 (1.001-1.035); Urine Urobilinogen < 2.0 EU/DL (0.2-1.0)
[2021-02-03 19:25] LABS: Barbiturates Screen,Urine Negative (Negative); Benzodiazepines Screen,Urine Negative (Negative); Cannabinoid Screen,Urine Negative (Negative); Opiate Screen,Urine Positive (Negative); Phencyclidine Screen,Urine Negative (Negative)
[2021-02-03] MEDS ORDERED: PIPERACILLIN/TAZOBACTAM 3,375 MG in SODIUM CHLORIDE 0.9% 100 ML IV STA (20:35)
[2021-02-03] MEDS ORDERED: NICOTINE 21 MG/24 HR PATCH TRANSDERM PRN (22:16)
[2021-02-03] MEDS ORDERED: GLUCAGON 1 MG VIAL IM PRN (22:16)
[2021-02-03] MEDS ORDERED: ONDANSETRON 4 MG/2 ML VIAL IV PRN (22:16)
[2021-02-03] MEDS ORDERED: DEXTROSE 50% 25 GM/50 ML VIAL IV PRN (22:16)
[2021-02-03] MEDS ORDERED: AZITHROMYCIN INJ 500 MG in SODIUM CHLORIDE 0.9% 250 ML IV ONE (22:28)
[2021-02-03] MEDS ORDERED: MELATONIN 3 MG TABLET PO PRN (22:28)
[2021-02-03 22:56] LABS: Ferritin 558.3 ng/mL (8-252)
[2021-02-03 23:52] LABS: INR 1.1; PT Patient Result 11.8 SECS (10.5-12.0)
[2021-02-04] MEDS: SODIUM CHLORIDE 0.9% 1,000 ML IV SCH (01:25)
[2021-02-04] MEDS: PIPERACILLIN/TAZOBACTAM 3,375 MG in SODIUM CHLORIDE 0.9% 100 ML IV SCH ×3 (05:03→21:05)
[2021-02-04 07:42] LABS: Ferritin 438.8 ng/mL (8-252)
[2021-02-04 07:44] LABS: Osmolality,Calculated 269.4 MOS/KG (273-304); Potassium 3.7 MMOL/L (3.5-5.1)
[2021-02-04] MEDS ORDERED: ZINC GLUCONATE 50 MG TABLET PO SCH (09:00)
[2021-02-04] MEDS ORDERED: AZITHROMYCIN 250 MG TABLET PO SCH (09:00)
[2021-02-04] MEDS ORDERED: CHOLECALCIFEROL 1,000 UNIT TABLET PO SCH (09:00)
[2021-02-04 09:51] LABS: Basophils % 0.2 % (0.0-0.8); Eosinophils # 0.3 10*3/uL (0.0-0.87); Eosinophils % 1.6 % (0.00-10.9); Hematocrit 27.4 VOL% (35.7-47.0); Hemoglobin 8.6 GM/DL (12.0-16.0); Immature Granulocytes % 0.7 %; Immature Granulocytes Absolute 0.13 #; Lymphocytes # 2.2 10*3/uL (1.4-4.0); Lymphocytes % 12.2 % (21.3-54.2); Mean Corpuscular HGB Conc 31.4 GM/DL (32-36); Mean Corpuscular Volume 89.8 FL (87-102); Mean Platelet Volume 11.1 FL (9.6-12.0); Monocytes % 7.5 % (1.7-12.7); NRBC # 0.04 10*3/uL; Neutrophils % 77.8 % (38.7-73.9); Platelet Count 429 T/CUMM (130-400); Red Blood Count 3.05 MC/CUMM (3.8-5.5); Red Cell Distribution Width 16.3 % (9.3-17.3); White Blood Count 18.4 T/CUMM (4-12)
[2021-02-04] MEDS: FAMOTIDINE 20 MG TABLET PO SCH ×2 (09:51→21:04)
[2021-02-04] MEDS: ASCORBIC ACID 500 MG TABLET PO SCH ×2 (09:51→21:05)
[2021-02-04] MEDS: ENOXAPARIN 30 MG/0.3 ML SYRINGE SUBCUT SCH (09:51)
[2021-02-04] MEDS: CETIRIZINE 10 MG TABLET PO SCH (09:52)
[2021-02-04] MEDS: methylPREDNISolone SOD SUC 40 MG/1 ML VIAL IV SCH ×2 (12:00→21:03)
[2021-02-04] MEDS ORDERED: SKIN HEALING OINT (AQUAPHOR) 50 GM TUBE TOP PRN (14:08)
[2021-02-04] MEDS: CHOLECALCIFEROL 5,000 UNIT TABLET PO SCH (21:04)
[2021-02-04] MEDS: MELATONIN 3 MG TABLET PO SCH (22:57)
[2021-02-04] MEDS ORDERED: DEXAMETHASONE 4 MG/1 ML VIAL IV SCH (23:00)
[2021-02-05] MEDS ORDERED: ALBUTEROL INHALER 18 GM INH PRN (00:20)
[2021-02-05] MEDS: PIPERACILLIN/TAZOBACTAM 3,375 MG in SODIUM CHLORIDE 0.9% 100 ML IV SCH (04:36)
[2021-02-05] MEDS: methylPREDNISolone SOD SUC 40 MG/1 ML VIAL IV SCH (04:36)
[2021-02-05] MEDS: SODIUM CHLORIDE 0.9% 1,000 ML IV SCH ×2 (04:36→04:37)
[2021-02-05 07:27] LABS: Basophils % 0.1 % (0.0-0.8); Hematocrit 23.3 VOL% (35.7-47.0); Hemoglobin 7.4 GM/DL (12.0-16.0); Immature Granulocytes % 1.4 %; Immature Granulocytes Absolute 0.29 #; Lymphocytes % 9.7 % (21.3-54.2); Mean Corpuscular HGB Conc 31.8 GM/DL (32-36); Mean Corpuscular Volume 86.9 FL (87-102); Mean Platelet Volume 10.6 FL (9.6-12.0); Monocytes % 4.8 % (1.7-12.7); NRBC # 0.02 10*3/uL; Platelet Count 429 T/CUMM (130-400); Red Blood Count 2.68 MC/CUMM (3.8-5.5); Red Cell Distribution Width 16.2 % (9.3-17.3); White Blood Count 20.1 T/CUMM (4-12)
[2021-02-05 07:48] LABS: Band Neutrophils 1 % (0-10); Hypochromasia 1+; Lymphocytes 6 % (20-55); Platelet Estimate Adequate; Segmented Neutrophils 89 % (50-85); Total Cells Counted 100
[2021-02-05 07:49] LABS: Microcytosis Slight
[2021-02-05 07:51] LABS: Ferritin 374.1 ng/mL (8-252)
[2021-02-05 08:55] LABS: Alanine Aminotransferase 35 U/L (13-56); Albumin 1.3 G/DL (3.4-5.0); Alkaline Phosphatase 116 U/L (45-117); Aspartate Amino Transferase 10 U/L (0-37); Bilirubin,Total < 0.39 MG/DL (0.20-1.00); Blood Urea Nitrogen 28 MG/DL (7-18); Calcium 7.8 MG/DL (8.5-10.1); Carbon Dioxide 8 MMOL/L (21-32); Estimated Glom Filtration Rate 39 ML/MIN; Glucose 84 MG/DL (74-106); Potassium 3.3 MMOL/L (3.5-5.1); Sodium 136 MMOL/L (136-145); Total Protein 5.5 G/DL (6.4-8.2)
[2021-02-05] MEDS: ASCORBIC ACID 500 MG TABLET PO SCH (08:57)
[2021-02-05] MEDS: CETIRIZINE 10 MG TABLET PO SCH (08:57)
[2021-02-05] MEDS: FAMOTIDINE 20 MG TABLET PO SCH ×2 (08:57→20:15)
[2021-02-05] MEDS: CHOLECALCIFEROL 5,000 UNIT TABLET PO SCH ×2 (08:57→20:15)
[2021-02-05] MEDS: ENOXAPARIN 30 MG/0.3 ML SYRINGE SUBCUT SCH (08:58)
[2021-02-05] MEDS: ZINC GLUCONATE 50 MG TABLET PO SCH (09:47)
[2021-02-05] MEDS ORDERED: AZITHROMYCIN 250 MG TABLET PO ONE (10:08)
[2021-02-05] MEDS ORDERED: ONDANSETRON ODT 4 MG TABLET PO PRN (10:08)
[2021-02-05] MEDS: DEXAMETHASONE 4 MG TABLET PO SCH (10:15)
[2021-02-05] MEDS ORDERED: cefTRIAXone 1,000 MG VIAL IM SCH (11:00)
[2021-02-05] MEDS ORDERED: POTASSIUM CHLORIDE 20 MEQ TABLET PO ONE (11:25)
[2021-02-05] MEDS ORDERED: SODIUM BICARBONATE 650 MG TABLET PO SCH (11:25)
[2021-02-05] MEDS ORDERED: cefTRIAXone 1,000 MG VIAL IV SCH (12:01)
[2021-02-05] MEDS: SUCRALFATE 1 GM TABLET PO SCH ×2 (12:15→16:13)
[2021-02-05] MEDS: SODIUM BICARB INJ 100 MEQ in STERILE WATER INJ 1,000 ML IV SCH ×2 (13:32→23:36)
[2021-02-05] MEDS: GABAPENTIN 300 MG CAPSULE PO SCH ×2 (16:13→20:15)
[2021-02-05] MEDS: MELATONIN 3 MG TABLET PO SCH (20:15)
[2021-02-05] MEDS: FERROUS SULFATE 325 MG TABLET PO SCH (20:15)
[2021-02-06] MEDS: LEVOTHYROXINE 200 MCG TABLET PO SCH (06:18)
[2021-02-06 07:12] LABS: Eosinophils % 0.1 % (0.00-10.9); Hematocrit 24.4 VOL% (35.7-47.0); Hemoglobin 7.6 GM/DL (12.0-16.0); Immature Granulocytes % 1.4 %; Immature Granulocytes Absolute 0.18 #; Lymphocytes # 1.5 10*3/uL (1.4-4.0); Lymphocytes % 11.6 % (21.3-54.2); Mean Corpuscular HGB Conc 31.1 GM/DL (32-36); Mean Corpuscular Volume 87.5 FL (87-102); Mean Platelet Volume 10.7 FL (9.6-12.0); Monocytes % 6.3 % (1.7-12.7); NRBC # 0.02 10*3/uL; Neutrophils % 80.6 % (38.7-73.9); Platelet Count 433 T/CUMM (130-400); Red Blood Count 2.79 MC/CUMM (3.8-5.5); Red Cell Distribution Width 16.7 % (9.3-17.3); White Blood Count 12.9 T/CUMM (4-12)
[2021-02-06] MEDS: cefTRIAXone 1,000 MG VIAL IM SCH (07:30)
[2021-02-06 07:37] LABS: Alanine Aminotransferase 40 U/L (13-56); Albumin 1.5 G/DL (3.4-5.0); Alkaline Phosphatase 119 U/L (45-117); Aspartate Amino Transferase 9 U/L (0-37); Bilirubin,Total < 0.39 MG/DL (0.20-1.00); Blood Urea Nitrogen 24 MG/DL (7-18); Calcium 8.1 MG/DL (8.5-10.1); Carbon Dioxide 11 MMOL/L (21-32); Estimated Glom Filtration Rate 46 ML/MIN; Ferritin 354.5 ng/mL (8-252); Glucose 70 MG/DL (74-106); Osmolality,Calculated 278.5 MOS/KG (273-304); Potassium 3.6 MMOL/L (3.5-5.1); Sodium 139 MMOL/L (136-145); Total Protein 5.2 G/DL (6.4-8.2)
[2021-02-06] MEDS: SILVER SULFADIAZINE 1% CREAM 25 GM TUBE TOP SCH (08:44)
[2021-02-06] MEDS: DEXAMETHASONE 4 MG TABLET PO SCH (08:44)
[2021-02-06] MEDS: POLYETHYLENE GLYCOL POWDER 17 GM PACK PO SCH (08:44)
[2021-02-06] MEDS: SUCRALFATE 1 GM TABLET PO SCH ×3 (08:45→17:36)
[2021-02-06] MEDS: GABAPENTIN 300 MG CAPSULE PO SCH ×3 (08:46→20:21)
[2021-02-06] MEDS: AZITHROMYCIN 250 MG TABLET PO SCH (08:46)
[2021-02-06] MEDS: ENOXAPARIN 30 MG/0.3 ML SYRINGE SUBCUT SCH (08:46)
[2021-02-06] MEDS: ZINC GLUCONATE 50 MG TABLET PO SCH (08:46)
[2021-02-06] MEDS: FERROUS SULFATE 325 MG TABLET PO SCH ×2 (08:46→20:20)
[2021-02-06] MEDS: CHOLECALCIFEROL 5,000 UNIT TABLET PO SCH ×2 (08:46→20:21)
[2021-02-06] MEDS: FAMOTIDINE 20 MG TABLET PO SCH ×2 (08:46→20:21)
[2021-02-06] MEDS: CETIRIZINE 10 MG TABLET PO SCH (09:49)
[2021-02-06] MEDS: SODIUM BICARBONATE 650 MG TABLET PO SCH ×3 (09:49→20:21)
[2021-02-06] MEDS: MAGNESIUM OXIDE 400 MG TABLET PO SCH ×2 (09:50→20:21)
[2021-02-06] MEDS: SODIUM BICARB INJ 100 MEQ in STERILE WATER INJ 1,000 ML IV SCH ×2 (11:49→22:52)
[2021-02-06] MEDS: MELATONIN 3 MG TABLET PO SCH (20:22)
[2021-02-07] MEDS: LEVOTHYROXINE 200 MCG TABLET PO SCH (06:35)
[2021-02-07 06:50] LABS: Basophils % 0.1 % (0.0-0.8); Hematocrit 22.6 VOL% (35.7-47.0); Hemoglobin 7.3 GM/DL (12.0-16.0); Immature Granulocytes % 1.1 %; Immature Granulocytes Absolute 0.12 #; Lymphocytes # 1.4 10*3/uL (1.4-4.0); Lymphocytes % 13.6 % (21.3-54.2); Mean Corpuscular HGB Conc 32.3 GM/DL (32-36); Mean Corpuscular Volume 87.3 FL (87-102); Mean Platelet Volume 10.9 FL (9.6-12.0); Monocytes % 6.4 % (1.7-12.7); NRBC # 0.02 10*3/uL; Neutrophils % 78.8 % (38.7-73.9); Platelet Count 406 T/CUMM (130-400); Red Blood Count 2.59 MC/CUMM (3.8-5.5); Red Cell Distribution Width 16.9 % (9.3-17.3); White Blood Count 10.6 T/CUMM (4-12)
[2021-02-07 07:19] LABS: Ferritin 328.7 ng/mL (8-252)
[2021-02-07] MEDS ORDERED: LIDOCAINE 1% 20 ML VIAL IM PRN ×2 (08:35→10:30)
[2021-02-07] MEDS: DEXAMETHASONE 4 MG TABLET PO SCH (08:36)
[2021-02-07] MEDS: ZINC GLUCONATE 50 MG TABLET PO SCH (08:36)
[2021-02-07] MEDS: ENOXAPARIN 30 MG/0.3 ML SYRINGE SUBCUT SCH (08:36)
[2021-02-07] MEDS: MAGNESIUM OXIDE 400 MG TABLET PO SCH ×2 (08:36→20:44)
[2021-02-07] MEDS: FERROUS SULFATE 325 MG TABLET PO SCH ×2 (08:37→20:44)
[2021-02-07] MEDS: SUCRALFATE 1 GM TABLET PO SCH ×3 (08:37→17:29)
[2021-02-07] MEDS: GABAPENTIN 300 MG CAPSULE PO SCH ×3 (08:37→20:42)
[2021-02-07] MEDS: FAMOTIDINE 20 MG TABLET PO SCH ×2 (08:37→20:44)
[2021-02-07] MEDS: CETIRIZINE 10 MG TABLET PO SCH (08:37)
[2021-02-07] MEDS: SODIUM BICARBONATE 650 MG TABLET PO SCH ×3 (08:37→20:44)
[2021-02-07] MEDS: AZITHROMYCIN 250 MG TABLET PO SCH (08:37)
[2021-02-07] MEDS: POLYETHYLENE GLYCOL POWDER 17 GM PACK PO SCH (08:37)
[2021-02-07] MEDS: CHOLECALCIFEROL 5,000 UNIT TABLET PO SCH ×2 (08:37→20:44)
[2021-02-07] MEDS: SILVER SULFADIAZINE 1% CREAM 25 GM TUBE TOP SCH (08:48)
[2021-02-07] MEDS ORDERED: POTASSIUM CHLORIDE 20 MEQ TABLET PO ONE (12:58)
[2021-02-07] MEDS ORDERED: SODIUM CHLORIDE 0.9% 1,000 ML IV PRN (12:58)
[2021-02-07] MEDS: cefTRIAXone 1,000 MG VIAL IM SCH (13:07)
[2021-02-07] MEDS: ENOXAPARIN 40 MG/0.4 ML SYRINGE SUBCUT SCH (20:42)
[2021-02-07] MEDS: MELATONIN 3 MG TABLET PO SCH (20:43)
[2021-02-08] MEDS: LEVOTHYROXINE 200 MCG TABLET PO SCH (06:30)
[2021-02-08 06:51] LABS: Basophils % 0.1 % (0.0-0.8); Hematocrit 24.9 VOL% (35.7-47.0); Hemoglobin 7.7 GM/DL (12.0-16.0); Immature Granulocytes % 2.3 %; Immature Granulocytes Absolute 0.23 #; Lymphocytes # 1.7 10*3/uL (1.4-4.0); Mean Corpuscular HGB Conc 30.9 GM/DL (32-36); Mean Corpuscular Volume 88.3 FL (87-102); Mean Platelet Volume 10.8 FL (9.6-12.0); Monocytes % 7.8 % (1.7-12.7); NRBC # 0.03 10*3/uL; Neutrophils % 72.8 % (38.7-73.9); Platelet Count 348 T/CUMM (130-400); Red Blood Count 2.82 MC/CUMM (3.8-5.5); Red Cell Distribution Width 17.1 % (9.3-17.3)
[2021-02-08 07:11] LABS: Calcium 7.7 MG/DL (8.5-10.1); Potassium 3.3 MMOL/L (3.5-5.1)
[2021-02-08] MEDS: SUCRALFATE 1 GM TABLET PO SCH ×3 (09:11→17:44)
[2021-02-08] MEDS ORDERED: POTASSIUM CHLORIDE 20 MEQ TABLET PO ONE (09:15)
[2021-02-08] MEDS ORDERED: SODIUM CHLORIDE 0.9% 1,000 ML IV PRN (09:16)
[2021-02-08] MEDS: SODIUM BICARBONATE 650 MG TABLET PO SCH ×3 (10:15→20:30)
[2021-02-08] MEDS: AZITHROMYCIN 250 MG TABLET PO SCH (10:15)
[2021-02-08] MEDS: FAMOTIDINE 20 MG TABLET PO SCH ×2 (10:15→20:30)
[2021-02-08] MEDS: GABAPENTIN 300 MG CAPSULE PO SCH ×3 (10:15→20:30)
[2021-02-08] MEDS: CHOLECALCIFEROL 5,000 UNIT TABLET PO SCH ×2 (10:16→20:30)
[2021-02-08] MEDS: ZINC GLUCONATE 50 MG TABLET PO SCH (10:16)
[2021-02-08] MEDS: MAGNESIUM OXIDE 400 MG TABLET PO SCH ×2 (10:16→20:30)
[2021-02-08] MEDS: CETIRIZINE 10 MG TABLET PO SCH (10:17)
[2021-02-08] MEDS: cefTRIAXone 1,000 MG VIAL IM SCH (10:17)
[2021-02-08] MEDS: DEXAMETHASONE 4 MG TABLET PO SCH (10:17)
[2021-02-08] MEDS: FERROUS SULFATE 325 MG TABLET PO SCH ×2 (10:17→20:30)
[2021-02-08] MEDS: POLYETHYLENE GLYCOL POWDER 17 GM PACK PO SCH (10:18)
[2021-02-08] MEDS: SILVER SULFADIAZINE 1% CREAM 25 GM TUBE TOP SCH (10:24)
[2021-02-08] MEDS: ENOXAPARIN 40 MG/0.4 ML SYRINGE SUBCUT SCH (20:30)
[2021-02-08] MEDS: MELATONIN 3 MG TABLET PO SCH (20:30)
[2021-02-09] MEDS: LEVOTHYROXINE 200 MCG TABLET PO SCH (06:38)
[2021-02-09 07:04] LABS: Basophils % 0.1 % (0.0-0.8); Hematocrit 25.2 VOL% (35.7-47.0); Hemoglobin 8.1 GM/DL (12.0-16.0); Immature Granulocytes % 2.6 %; Immature Granulocytes Absolute 0.33 #; Lymphocytes # 2.7 10*3/uL (1.4-4.0); Lymphocytes % 20.9 % (21.3-54.2); Mean Corpuscular HGB Conc 32.1 GM/DL (32-36); Mean Platelet Volume 10.9 FL (9.6-12.0); Monocytes % 6.8 % (1.7-12.7); NRBC # 0.06 10*3/uL; Neutrophils % 69.6 % (38.7-73.9); Platelet Count 378 T/CUMM (130-400); Red Blood Count 2.93 MC/CUMM (3.8-5.5); Red Cell Distribution Width 16.9 % (9.3-17.3); White Blood Count 12.7 T/CUMM (4-12)
[2021-02-09 07:20] LABS: Calcium 7.3 MG/DL (8.5-10.1); Potassium 3.6 MMOL/L (3.5-5.1)
[2021-02-09 07:27] LABS: Folate 2.87 NG/ML (5.38-24.0)
[2021-02-09 07:28] LABS: % Iron Saturation 58.5 % (18-50); Ferritin 320.6 ng/mL (8-252)
[2021-02-09] MEDS: ZINC GLUCONATE 50 MG TABLET PO SCH (10:21)
[2021-02-09] MEDS: SODIUM BICARBONATE 650 MG TABLET PO SCH ×3 (10:22→20:45)
[2021-02-09] MEDS: MAGNESIUM OXIDE 400 MG TABLET PO SCH ×2 (10:22→20:45)
[2021-02-09] MEDS: FAMOTIDINE 20 MG TABLET PO SCH ×2 (10:22→20:45)
[2021-02-09] MEDS: DEXAMETHASONE 4 MG TABLET PO SCH (10:22)
[2021-02-09] MEDS: AZITHROMYCIN 250 MG TABLET PO SCH (10:23)
[2021-02-09] MEDS: CETIRIZINE 10 MG TABLET PO SCH (10:23)
[2021-02-09] MEDS: CHOLECALCIFEROL 5,000 UNIT TABLET PO SCH ×2 (10:23→20:45)
[2021-02-09] MEDS: SUCRALFATE 1 GM TABLET PO SCH ×3 (10:23→17:45)
[2021-02-09] MEDS: cefTRIAXone 1,000 MG VIAL IM SCH (10:23)
[2021-02-09] MEDS: FERROUS SULFATE 325 MG TABLET PO SCH ×2 (10:23→20:45)
[2021-02-09] MEDS: GABAPENTIN 300 MG CAPSULE PO SCH ×3 (10:23→20:45)
[2021-02-09] MEDS: SILVER SULFADIAZINE 1% CREAM 25 GM TUBE TOP SCH (10:24)
[2021-02-09] MEDS: POLYETHYLENE GLYCOL POWDER 17 GM PACK PO SCH (10:24)
[2021-02-09] MEDS: SODIUM CHLORIDE 0.9% 1,000 ML IV SCH ×2 (10:24→17:45)
[2021-02-09] MEDS: MELATONIN 3 MG TABLET PO SCH (20:45)
[2021-02-09] MEDS: ENOXAPARIN 40 MG/0.4 ML SYRINGE SUBCUT SCH (21:38)
[2021-02-10] MEDS: SODIUM CHLORIDE 0.9% 1,000 ML IV SCH ×3 (02:02→17:28)
[2021-02-10] MEDS: LEVOTHYROXINE 200 MCG TABLET PO SCH (06:07)
[2021-02-10 06:46] LABS: Basophils % 0.1 % (0.0-0.8); Eosinophils % 0.1 % (0.00-10.9); Immature Granulocytes % 2.3 %; Immature Granulocytes Absolute 0.34 #; Lymphocytes # 3.1 10*3/uL (1.4-4.0); Lymphocytes % 20.8 % (21.3-54.2); Mean Corpuscular HGB Conc 31.8 GM/DL (32-36); Mean Corpuscular Volume 86.6 FL (87-102); Mean Platelet Volume 10.7 FL (9.6-12.0); Monocytes % 7.2 % (1.7-12.7); NRBC # 0.09 10*3/uL; Neutrophils % 69.5 % (38.7-73.9); Platelet Count 322 T/CUMM (130-400); Red Blood Count 2.54 MC/CUMM (3.8-5.5); White Blood Count 14.7 T/CUMM (4-12)
[2021-02-10 07:20] LABS: Calcium 6.9 MG/DL (8.5-10.1); Osmolality,Calculated 281.3 MOS/KG (273-304); Potassium 3.1 MMOL/L (3.5-5.1)
[2021-02-10 07:24] LABS: Alanine Aminotransferase 42 U/L (13-56); Albumin 1.3 G/DL (3.4-5.0); Alkaline Phosphatase 106 U/L (45-117); Aspartate Amino Transferase 12 U/L (0-37); Bilirubin,Direct < 0.100 MG/DL (0.0-0.20); Bilirubin,Indirect 1.1 MG/DL (0.0-1.0); Total Protein 4.2 G/DL (6.4-8.2)
[2021-02-10] MEDS ORDERED: SODIUM CHLORIDE 0.9% 1,000 ML IV PRN (07:39)
[2021-02-10] MEDS: cefTRIAXone 1,000 MG VIAL IM SCH (08:39)
[2021-02-10] MEDS: ZINC GLUCONATE 50 MG TABLET PO SCH (08:39)
[2021-02-10] MEDS: CHOLECALCIFEROL 5,000 UNIT TABLET PO SCH ×2 (08:40→20:44)
[2021-02-10] MEDS: SUCRALFATE 1 GM TABLET PO SCH ×3 (08:40→17:28)
[2021-02-10] MEDS: SODIUM BICARBONATE 650 MG TABLET PO SCH ×3 (08:40→20:45)
[2021-02-10] MEDS: FERROUS SULFATE 325 MG TABLET PO SCH ×2 (08:40→20:44)
[2021-02-10] MEDS: MAGNESIUM OXIDE 400 MG TABLET PO SCH ×2 (08:40→20:44)
[2021-02-10] MEDS: DEXAMETHASONE 4 MG TABLET PO SCH (08:40)
[2021-02-10] MEDS: GABAPENTIN 300 MG CAPSULE PO SCH ×3 (08:40→20:45)
[2021-02-10] MEDS: CETIRIZINE 10 MG TABLET PO SCH (08:40)
[2021-02-10] MEDS: FAMOTIDINE 20 MG TABLET PO SCH ×2 (08:40→20:45)
[2021-02-10] MEDS: POLYETHYLENE GLYCOL POWDER 17 GM PACK PO SCH (09:19)
[2021-02-10] MEDS: SILVER SULFADIAZINE 1% CREAM 25 GM TUBE TOP SCH (09:20)
[2021-02-10] MEDS: ENOXAPARIN 40 MG/0.4 ML SYRINGE SUBCUT SCH (20:44)
[2021-02-10] MEDS: MELATONIN 3 MG TABLET PO SCH (20:45)
[2021-02-10 20:53] LABS: Hematocrit 31.4 VOL% (35.7-47.0); Hemoglobin 9.9 GM/DL (12.0-16.0)
[2021-02-11] MEDS: SODIUM CHLORIDE 0.9% 1,000 ML IV SCH ×2 (01:12→08:11)
[2021-02-11 05:18] LABS: Basophils % 0.2 % (0.0-0.8); Eosinophils % 0.2 % (0.00-10.9); Hematocrit 31.8 VOL% (35.7-47.0); Hemoglobin 10.2 GM/DL (12.0-16.0); Immature Granulocytes Absolute 0.39 #; Lymphocytes # 3.4 10*3/uL (1.4-4.0); Lymphocytes % 17.6 % (21.3-54.2); Mean Corpuscular HGB Conc 32.1 GM/DL (32-36); Mean Corpuscular Volume 87.1 FL (87-102); Monocytes % 5.5 % (1.7-12.7); NRBC # 0.08 10*3/uL; Neutrophils % 74.5 % (38.7-73.9); Platelet Count 294 T/CUMM (130-400); Red Blood Count 3.65 MC/CUMM (3.8-5.5); Red Cell Distribution Width 16.1 % (9.3-17.3); White Blood Count 19.2 T/CUMM (4-12)
[2021-02-11 05:30] LABS: Calcium 6.6 MG/DL (8.5-10.1); Osmolality,Calculated 279.4 MOS/KG (273-304); Potassium 2.9 MMOL/L (3.5-5.1)
[2021-02-11] MEDS: LEVOTHYROXINE 200 MCG TABLET PO SCH (06:14)
[2021-02-11] MEDS ORDERED: POTASSIUM CHLORIDE 20 MEQ TABLET PO ONE ×2 (07:26→13:29)
[2021-02-11] MEDS ORDERED: CALCIUM GLUCONATE 1,000 MG in SODIUM CHLORIDE 0.9% 100 ML IV ONE (08:00)
[2021-02-11] MEDS: SUCRALFATE 1 GM TABLET PO SCH ×2 (08:11→12:41)
[2021-02-11] MEDS: DEXAMETHASONE 4 MG TABLET PO SCH (08:36)
[2021-02-11] MEDS: MAGNESIUM OXIDE 400 MG TABLET PO SCH (08:37)
[2021-02-11] MEDS: FAMOTIDINE 20 MG TABLET PO SCH (08:37)
[2021-02-11] MEDS: POLYETHYLENE GLYCOL POWDER 17 GM PACK PO SCH (08:37)
[2021-02-11] MEDS: FERROUS SULFATE 325 MG TABLET PO SCH (08:37)
[2021-02-11] MEDS: SODIUM BICARBONATE 650 MG TABLET PO SCH (08:37)
[2021-02-11] MEDS: SILVER SULFADIAZINE 1% CREAM 25 GM TUBE TOP SCH (08:37)
[2021-02-11] MEDS: cefTRIAXone 1,000 MG VIAL IM SCH (08:37)
[2021-02-11] MEDS: GABAPENTIN 300 MG CAPSULE PO SCH (08:37)
[2021-02-11] MEDS: CHOLECALCIFEROL 5,000 UNIT TABLET PO SCH (08:38)
[2021-02-11] MEDS: CETIRIZINE 10 MG TABLET PO SCH (08:38)
[2021-02-11] MEDS: ZINC GLUCONATE 50 MG TABLET PO SCH (08:38)
[2021-02-11 17:57] VITALS: BP 105/75
== END 2021-02-11 17:25 | disposition home or self-care (01) | DRG 178 ==
LOC: N.ED 16:51 → N.EDINP 22:16 → SUATTDRO 22:16 → N.EDINP 02-04 02:15 → N.2E 02-04 03:26
PROVIDERS: ADMIT Internal Medicine; ATTEND Internal Medicine